=== PATIENT | male | born 1965 | race Two or more races ===

== ENCOUNTER → 2019-06-21 | Outpatient (CLI) | payer MEDICARE | END | disposition home or self-care (01) | LOC: MSC 13:05 | PROVIDERS: ATTEND Anesthesiology | DX: M54.16 Radiculopathy, lumbar region (principal); M62.830 Muscle spasm of back; M40.299 Other kyphosis, site unspecified; G89.4 Chronic pain syndrome; M79.606 Pain in leg, unspecified; Z79.891 Long term (current) use of opiate analgesic; Z79.1 Long term (current) use of non-steroidal anti-inflammatories (NSAID) ==